=== PATIENT | male | born 1990 | race Caucasian/White ===

== ENCOUNTER 2021-07-26 11:33 | Emergency (ER) | payer OTHER ==
[~2021-07-26] VITALS: Ht 175.3 cm; Wt 81.7 kg
--- NOTE | ~2021-07-26 | EMS ---
[facility] [address] [place] [address] EMS Patient Care Report Name: MARY ALEGRIA Room: [facility]#: [id number] Admission: 07/26/21 Attend Phys: Discharge: Date of : 86 Report #: [id number] THIS REPORT FOR: //name// Report Transmitted: 07/26/2021 11:48 EMS Care [place] [id number] @ 07/26/2021 10:47 Incident Location [id number] [place] [address] Patient Marques Tevin Male, 31 Years 1990 Patient Address [address] [place] [id number] Patient History Other, Patient Allergies , Chief Complaint Nausea Disposition Transported No Lights/[place] Reason Sick Person Transported To [facility] Narrative [facility] responded without delay to a private residence for a male with abdominal pain and complaints of withdraw from drugs. Arrived on scene without incident. Arrived to find the patient is a 31 Y/O male laying supine in bed. The patient is alert and oriented, GCS is documented. The patient is calm and cooperative with EMS staff. The patients airway is patent, breathing spontaneously with an adequate rate and depth. Circulation is present, skin [facility] [address] [place] [address] EMS Patient Care Report Name: MARY [facility]LEGRIA [id number] Admission: 07/26/21 Attend Phys: Discharge: Date of : [birth year] Report #: [id number] condition is documented. The patient reports "I'm Sick" When asked to describe what he means the patient reports that he has nausea, back pain and abdominal pain. 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 The patient reports that he is not currently prescribed any medications but has been taking them anyway. The patient reports that last night he started to not fell well and vomited 3-4 times this AM. The patient reports that his last use of heroine was 3 days ago. The patient is assisted from his bed to the EMS cot without incident. The patient is secured to the cot with all safety restraints and covered with a blanket for comfort. The patient is escorted to, lifted into and secured to the ambulance without incident. The patient is placed on the residential monitor to obtain vital signs and cardiac monitoring. The patient is sinus kianna on the monitor. The patient denies any chest pain or shortness of breath. The patient reports that his abdominal pain is all over. The patient reports that he also has severe nausea. Vascular access is attempted without success. The patient patient was given 8mg of oral Zofran for his nausea. The patient tolerated well. The patient reports minimal improvement in his nausea and none in his pain. The patient denies any recent trauma and denies any further complaints at this time. The patients medical history is obtained and reviewed with the patient. The patient continues to rest on the cot in no acute distress. Radio report called to [facility] without incident. Arrived at the receiving facility. The patient is removed from the ambulance and escorted inside. The patient is escorted to triage. RN obtained report and assumed care of the patient. RN requested nothing further. The patient remains in stable condition. [facility] cleared and returned to service. Initial Vitals @11:19Pain: 07/11, @11:02Pain: 07/11, @11:03SpO2: 100, @11:21SpO2: 100, @11:25SpO2: 98, @11:03 @11:03P: 64,R: 19,BP: 133/79, @11:21P: 58,R: 17,BP: 139/93, @11:29P: 68,R: 19,BP: 142/87, @11:03GCS: 15, @11:21GCS: 15, @11:29GCS: 15, @11:02 @11:06Glucose: 103, Assessments @11:02MENTAL:SKIN:HEENT:LUNG SOUNDS:ABDOMEN:PELVIS//GI:EXTREMITIES:PULSE:NEURO: [place] [address] EMS Patient Care Report Name: MARY ALEGRAI Room: [facility] Tyrel#: [id number] Admission: 07/26/21 Attend Phys: Discharge: Date of : 86 Report #: [id number] Impression Nausea Procedures @11:03Ondansetron - 8.000 Milligrams (mg) - OralResponse: Improved@11:033-Lead ECGResponse: UnchangedSucceeded Timeline 10:46,Call Received 10:46,Dispatch Notified 10:46,Psap Call 10:47,Dispatched 10:47,En Route 11:00,On Scene 11:02,At Patient 11:02,BP: / M,PULSE: ,RR: R,SPO2: Ox,ETCO2: ,BG: ,PAIN: 8,GCS: , 11:02,BP: / M,PULSE: ,RR: R,SPO2: Ox,ETCO2: ,BG: ,PAIN: ,GCS: , 11:03,Ondansetron - 8.000 Milligrams (mg) - Oral,Response: Improved 11:03,3-Lead ECG,Response: UnchangedSucceeded, 11:03,BP: / M,PULSE: ,RR: R,SPO2: 100 Ox,ETCO2: ,BG: ,PAIN: ,GCS: , 11:03,BP: / M,PULSE: ,RR: R,SPO2: Ox,ETCO2: ,BG: ,PAIN: ,GCS: , 11:03,BP: 133/79 M,PULSE: 64,RR: 19 R,SPO2: Ox,ETCO2: ,BG: ,PAIN: ,GCS: , 11:03,BP: / M,PULSE: ,RR: R,SPO2: Ox,ETCO2: ,BG: ,PAIN: ,GCS: 15, 11:06,BP: / M,PULSE: ,RR: R,SPO2: Ox,ETCO2: ,B,PAIN: ,GCS: , 11:15,Depart Scene 11:19,BP: / M,PULSE: ,RR: R,SPO2: Ox,ETCO2: ,BG: ,PAIN: 8,GCS: , 11:21,BP: / M,PULSE: ,RR: R,SPO2: 100 Ox,ETCO2: ,BG: ,PAIN: ,GCS: , 11:21,BP: 139/93 M,PULSE: 58,RR: 17 R,SPO2: Ox,ETCO2: ,BG: ,PAIN: ,GCS: , 11:21,BP: / M,PULSE: ,RR: R,SPO2: Ox,ETCO2: ,BG: ,PAIN: ,GCS: 15, 11:25,BP: / M,PULSE: ,RR: R,SPO2: 98 Ox,ETCO2: ,BG: ,PAIN: ,GCS: , 11:29,BP: 142/87 M,PULSE: 68,RR: 19 R,SPO2: Ox,ETCO2: ,BG: ,PAIN: ,GCS: , 11:29,BP: / M,PULSE: ,RR: R,SPO2: Ox,ETCO2: ,BG: ,PAIN: ,GCS: 15, 11:30,At Destination 11:43,Call Closed Disclaimer v1.1 Copyright 2020 [employer] This EMS Care Summary contains data elements from the applicable legal record (which may be displayed differently). It is designed to provide pertinent information for the following purposes: continuity of care, clinical quality, and state data reporting. The complete legal record is available to ED staff and administrators of the receiving hospital in ES's Patient Tracker. All data is provided "as is."
[2021-07-26 14:26] LABS: CALCIUM 8.1 mg/dL (8.5-10.1); CREATININE 0.8 mg/dL (0.6-1.3); POTASSIUM 4.4 mmol/L (3.5-5.1)
[2021-07-26 14:31] LABS: ALBUMIN 2.6 g/dL (3.4-5.0); MAGNESIUM 2.1 mg/dL (1.8-2.4); TOTAL BILIRUBIN 0.2 mg/dL (<0.1-1.0); TOTAL PROTEIN 6.5 g/dL (6.4-8.2)
[2021-07-26 16:31] LABS: URINE BILIRUBIN NEGATIVE (Negative); URINE BLOOD NEGATIVE (Negative); URINE CLARITY CLEAR; URINE COLOR YELLOW; URINE GLUCOSE-RANDOM NEGATIVE (Negative); URINE KETONES NEGATIVE (Negative); URINE LEUKOCYTES-REFLEX NEGATIVE (Negative); URINE NITRITE-REFLEX NEGATIVE (Negative); URINE PROTEIN NEGATIVE (Negative); URINE SPECIFIC GRAVITY >= 1.030 (1.005-1.030); URINE UROBILINOGEN 0.2 E.U./dl (0.2-1.0)
[2021-07-26 16:38] LABS: AMP/METHAMP POSITIVE (Negative); BARBITURATES Negative (Negative); BENZODIAZEPINES Negative (Negative); COCAINE Negative (Negative); METHADONE Negative (Negative); OPIATES POSITIVE (Negative); PCP Negative (Negative); THC POSITIVE (Negative)
[2021-07-26] MEDS ORDERED: ZOFRAN ODT4 MG PO (16:41)
[2021-07-26] MEDS ORDERED: FLEXERIL PO (16:41)
[2021-07-26 17:18] VITALS: BP 119/81
== END 2021-07-26 17:19 | disposition home or self-care (01) ==
LOC: M.ERS 11:33
PROVIDERS: Nurse Practitioner Family
DX: A08.8 Other specified intestinal infections (principal); F19.10 Other psychoactive substance abuse, uncomplicated; F11.13 Opioid abuse with withdrawal; R11.2 Nausea with vomiting, unspecified; Z88.0 Allergy status to penicillin; Z91.030 Bee allergy status